=== PATIENT | female | born 1995 | race American Indian/Alaskan Native ===

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

== ENCOUNTER 2017-11-01 11:09 | Emergency (ER) | payer SELFPAY ==
[2017-11-01 12:08] VITALS: BP 124/87
[2017-11-01] MEDS ORDERED: DECADRON IV ONE (16:08)
[2017-11-01] MEDS ORDERED: NACL 0.9% 1000 ML 1,000 ML IV ONE (16:08)
[2017-11-01] MEDS ORDERED: CLEOCIN 600 MG/50 mL 600 MG/50 ML BAG IV ONE (16:10)
--- NOTE | 2017-11-01 16:14 | Emergency Department Report ---
Blank Doc - Documentation Documentation: Patient complains of swelling underneath her chin for the last 3 days. Patient states that the swelling has become increasingly worse and is also painful as well. Patient denies any issues with swallowing or having fever at home. On exam the patient has submental lymphadenopathy intraoral exam shows some intraoral cellulitis there is not any tenderness to the floor the mouth also the floor of mouth is not raised. IV antibiotics and IV fluids were ordered as well as CT of the neck. Care will be handed over to the mid-level Provider with consultation available by me
[2017-11-01 16:33] LABS: Basophils % (Auto) 0.3 % (0.0-1.8); Eosinophils % (Auto) 0.4 % (0.0-4.3); Hematocrit 42.3 % (30.3-42.9); Hemoglobin 14.2 gm/dl (10.1-14.3); Lymphocytes % (Auto) 12.6 % (13.4-35.0); Mean Corpuscular HGB Conc 34 % (30-34); Mean Corpuscular Hemoglobin 29 pg (28-32); Mean Corpuscular Volume 86 fl (79-97); Monocytes # (Auto) 0.7 K/mm3 (0.0-0.8); Platelet Count 214 K/mm3 (140-440); Red Blood Count 4.92 M/mm3 (3.65-5.03); Red Cell Distribution Width 13.5 % (13.2-15.2)
[2017-11-01 16:49] LABS: Alanine Aminotransferase 7 units/L (7-56); Albumin 4.8 g/dL (3.9-5); BUN/Creatinine Ratio 16; Blood Urea Nitrogen 8 mg/dL (7-17); Calcium 9.7 mg/dL (8.4-10.2); Hemolysis Index 6
--- NOTE | 2017-11-01 18:23 | Emergency Department Report ---
Abscess Boil HPI - HPI Chief Complaint: Skin/Abscess/Foreign Body Stated Complaint: SWOLLEN FACE/PAIN Time Seen by Provider: 11/01/17 15:42 Duration: 3 Days Location: Other (left chin area) Severity: Moderate History: Yes Pain, No Fever, No Purulent Drainage, No Numbness, No Foreign Body , No Previous History, No Insect Bite HPI: This is a 21-year-old female nontoxic, well nourished in appearance, no acute signs of distress presents to the ED with c/o of left chin swelling x3 days. Patient denies any pus, drainage, fever, chills, headache, nausea, vomiting, chest pain, shortness of breath, dental pain, stiff neck, abdominal pain. Patient states allergies to penicillin. Patient denies significant past medical history. Home Medications: Previous Rx's Medication Instructions Recorded Last Taken Type Azithromycin [Zithromax Z-JESSICA] 250 mg PO QDAY #6 tablet 10/28/16 Unknown Rx Carbamide Peroxide 6.5% [Ear Wax 5 - 10 drops OT BID #1 bottle 10/28/16 Unknown Rx Drops] Ibuprofen [Motrin] 400 mg PO Q8H PRN #25 tablet 10/28/16 Unknown Rx Acetaminophen/Codeine [Tylenol 1 tab PO Q6H PRN #12 tab 11/01/17 Unknown Rx /Codeine # 3 tab] Clindamycin [Clindamycin CAP] 300 mg PO Q8H #21 cap 11/01/17 Unknown Rx Ibuprofen [Motrin] 600 mg PO Q8H PRN #30 tablet 11/01/17 Unknown Rx Allergies/Adverse Reactions: Allergies Allergy/AdvReac Type Severity Reaction Status Date / Time Penicillins Allergy Angioedema Verified 10/28/16 17:41 ED Review of Systems ROS: Stated complaint: SWOLLEN FACE/PAIN Other details as noted in HPI Constitutional: denies: chills, fever Eyes: denies: eye pain, eye discharge, vision change ENT: denies: ear pain, throat pain Respiratory: denies: cough, shortness of breath, wheezing Cardiovascular: denies: chest pain, palpitations Endocrine: no symptoms reported Gastrointestinal: denies: abdominal pain, nausea, diarrhea Genitourinary: denies: urgency, dysuria, discharge Musculoskeletal: denies: back pain, joint swelling, arthralgia Skin: denies: rash, lesions Neurological: denies: headache, weakness, paresthesias Psychiatric: denies: anxiety, depression Hematological/Lymphatic: denies: easy bleeding, easy bruising ED Past Medical Hx - Past Medical History Previous Medical History?: Yes Hx Psychiatric Treatment: Yes ('mood disorder', ADHD) - Surgical History Past Surgical History?: Yes Additional Surgical History: hernia repair - Social History Smoking Status: Current Every Day Smoker Substance Use Type: Alcohol - Medications Home Medications: Home Medications Medication Instructions Recorded Confirmed Last Taken Type Azithromycin [Zithromax Z-JESSICA] 250 mg PO QDAY #6 tablet 10/28/16 Unknown Rx Carbamide Peroxide 6.5% [Ear Wax 5 - 10 drops OT BID #1 bottle 10/28/16 Unknown Rx Drops] Ibuprofen [Motrin] 400 mg PO Q8H PRN #25 tablet 10/28/16 Unknown Rx Acetaminophen/Codeine [Tylenol 1 tab PO Q6H PRN #12 tab 11/01/17 Unknown Rx /Codeine # 3 tab] Clindamycin [Clindamycin CAP] 300 mg PO Q8H #21 cap 11/01/17 Unknown Rx Ibuprofen [Motrin] 600 mg PO Q8H PRN #30 tablet 11/01/17 Unknown Rx ED Abscess Boil Physical Exam - Exam General: Vital signs noted. No distress. Alert and acting appropriately. GENERAL: The patient is a well-developed, well-nourished in no apparent distress. Patient is alert and acting appropriately for age. Alert and oriented 3, no apparent distress, normal gait, atraumatic. HEENT: Head is normocephalic and atraumatic. PERRL, Extraocular muscles are intact. Pupils are equal, round, and reactive to light and accommodation. Nares appeared normal. Mouth is well hydrated and without lesions. Mucous membranes are moist. Posterior pharynx clear of any exudate or lesions. Mouth is well hydrated and without lesions. Tonsils not erythematous or swollen. Uvula midline. Tongue elevated. Mucous members are moist. Posterior pharynx clear, no exudate or lesions. Patent airways. NECK: Supple. No carotid bruits. No lymphadenopathy or thyromegaly.nontender. No meningitic signs are noted. LUNGS: Clear to auscultation. Non labor breathing. No intercostal retractions. Symmetrical with respiration, no wheezing, no rales, or crackles. HEART: Regular rate and rhythm without murmur, rubs or gallops. No reproducible. S1, S2 present, regular rate and rhythm without murmur, no rubs, no gallops. ABDOMEN: Soft, nontender, and nondistended. Positive bowel sounds. No hepatosplenomegaly was noted. No guarding or rebound tenderness, negative epigastric bruit. Negative psoas sign, negative eubanks sign, negative McBurneys sign EXTREMITIES: Without any cyanosis, clubbing, rash, lesions or edema. Peripheral pulses intact. Capillary refill less than 2 seconds. Full range of motion bilaterally. NEUROLOGIC: Cranial nerves II through XII are grossly intact. Alert and oriented x 3. Normal gait. Symmetrical strength and sensation. Reflexes 2+ throughout. Cerebellar testing normal. GCS score of 15. PSYCHIATRIC: Normal affect with no suicidal or homicidal ideations. Front/Back of Body, Lg (Color): 1 - abscess here Size: 3 cm Exam: Yes Tenderness, Yes Fluctuance, Yes Normal Neurologic Exam, Yes Normal Circulation, No Surrounding Cellulites/Erythema, No Lymphangitis, No Crepitation , No Heart Murmur I & D Note - I & D Note I & D Note: Under sterile field, I used Betadine to cleanse the area. I then used 1% Lidocaine plain with 25-gauge 5/8 needle to inject area for anesthetic purposes. Total volume injected 3 mL. I then used an 11 blade to make a 1 cm incision. About 3 mL's of purulent drainage has been noted. I then used a hemostat to break the abscess formation. I then used sterile 0.9% normal saline flush to flush the wound with total volume of 40 mL used. I then put a 1 /4 iodoform packing to the incision. A sterile 4 x 4 with tape has been applied as dressing. Bleeding is under control. Patient tolerated the procedure well with no signs of distress noted. ED Course Vital Signs 11/01/17 12:04 Temperature 98.4 F Pulse Rate 87 Respiratory 16 Rate Blood Pressure 124/87 O2 Sat by Pulse 96 Oximetry - Reevaluation(s) Reevaluation #1: 11/01/17 18:24 Patient is speaking in full sentences with no signs of distress noted. Critical care attestation.: If time is entered above; I have spent that time in minutes in the direct care of this critically ill patient, excluding procedure time. ED Medical Decision Making - Lab Data Result diagrams: 11/01/17 16:11 11/01/17 16:11 - Medical Decision Making This is a 21-year-old female that presents with left chin abscess. Patient is stable and was examined by me. The incision and drainage and has been performed and patient tolerated well. A sterile dressing has been applied. Patient was educated on proper wound care. Labs unremarkable. Patient received 600 mg IV clindamycin the ED. Patient also received [place] which stated that she will not be operating any machinery after discharge. Patient is discharged with Clinda and Tylenol with codeine and was instructed not to operate any machinery while taking Tylneol with codine due to drowsiness. Patient was instructed to return in 2 days for packing removal. Patient was instructed to refer to Follow-up with a primary care doctor in 3-5 days or if symptoms worsen and continue return to emergency room as soon as possible. At time of discharge, the patient does not seem toxic or ill in appearance. No acute signs of distress noted. Patient agrees to discharge treatment plan of care. No further questions noted by the patient. ED Disposition Clinical Impression: Abscess, Encounter for incision and drainage procedure Disposition: DC-01 TO HOME OR SELFCARE Is pt being admited?: No Does the pt Need Aspirin: No Condition: Stable Instructions: Abscess Incision and Drainage (ED), Abscess (ED), Acetaminophen/ Codeine (By mouth) Additional Instructions: Follow-up with a primary care doctor in 3-5 days or if symptoms worsen and continue return to emergency room as soon as possible. Return in 2 days for packing removal Do not operate any machinery while taking Tylenol with codeine as this may cause drowsiness. Prescriptions: Acetaminophen/Codeine [Tylenol /Codeine # 3 tab] 1 tab PO Q6H PRN #12 tab PRN Reason: Pain , Severe (7-10) Clindamycin [Clindamycin CAP] 300 mg PO Q8H #21 cap Ibuprofen [Motrin] 600 mg PO Q8H PRN #30 tablet PRN Reason: Pain Referrals: PRIMARY CARE, [Primary Care Provider] - 3-5 Days GOODJOIN,FELIX B, MD [Staff Physician] - 3-5 Days [facility] [Outside] - 3-5 Days [facility] [Outside] - 3-5 Days Forms: Work/School Release Form(ED)
--- NOTE | 2017-11-01 19:55 | Cat Scan Report ---
FINAL REPORT EXAM: CT NECK W CON HISTORY: submental swelling TECHNIQUE: Spiral CT scanning of the neck after the uneventful administration of IV contrast. PRIORS: None. FINDINGS: Ovoid, ring-enhancing low-density focus or collection noted subjacent to left mandibular body measuring up to 1.5 cm. Diffuse surrounding soft tissue edema. Prominent lymph nodes in the adjacent submental region may be reactive. No other discrete soft tissue mass. Adjacent mandible grossly intact. The parapharyngeal, international marketing coordinator, parotid, carotid, retropharyngeal and prevertebral spaces are without significant abnormality. The right submandibular and sublingual spaces are grossly unremarkable. Larynx, trachea, thyroid gland and thoracic inlet within normal limits. IMPRESSION: 1. Findings compatible with nonspecific postinflammatory change, including cellulitis or sialoadenitis subjacent to left mandibular body, including probable small inflammatory collection or abscess formation, as reported. Clinical correlation and followup suggested.
[2017-11-01] MEDS ORDERED: NORCO 10/325 PO ONE (20:26)
== END 2017-11-01 21:16 | disposition home or self-care (01) ==
LOC: ED 11:09
DX: L02.01 Cutaneous abscess of face (principal); F17.200 Nicotine dependence, unspecified, uncomplicated; Z88.0 Allergy status to penicillin
CPT/HCPCS: 10060; 36415; 70491; 80053; 84702; 85025; 96374; 96375; 99284; J1100; J7030; Q9967

== ENCOUNTER 2017-11-03 08:07 | Emergency (ER) | payer SELFPAY ==
[2017-11-03 08:26] VITALS: BP 107/65
--- NOTE | 2017-11-03 09:54 | Emergency Department Report ---
ED Recheck HPI - General Chief Complaint: Laceration/Recheck/Suture Stated Complaint: FOLLOW UP, PACKING REMOVING Time Seen by Provider: 11/03/17 09:17 Source: patient Mode of arrival: Ambulatory Limitations: No Limitations - History of Present Illness Initial Comments: This 21-year-old female presents for packing removal. Patient states she had I&D 2 days ago with an abscess to the left side of jaw. She is also requesting a new prescription for antibiotics. Patient state she cannot afford to feel clindamycin as prescribed. She is changing or is daily with small amount of drainage from wound site. Patient denies numbness or tingling, tenderness, swelling, erythema or bruising. MD Complaint: wound re-check Onset/Timin -: days(s) Initial Visit For: abscess Returns Today for: wound recheck Symptoms Since Prior Visit: no new symptoms Context: planned re-check Associated Symptoms: none Treatments Prior to Arrival: dressings, Given Antibiotics on - Related Data Previous Rx's Medication Instructions Recorded Last Taken Type Azithromycin [Zithromax Z-JESSICA] 250 mg PO QDAY #6 tablet 10/28/16 Unknown Rx Carbamide Peroxide 6.5% [Ear Wax 5 - 10 drops OT BID #1 bottle 10/28/16 Unknown Rx Drops] Ibuprofen [Motrin] 400 mg PO Q8H PRN #25 tablet 10/28/16 Unknown Rx Acetaminophen/Codeine [Tylenol 1 tab PO Q6H PRN #12 tab 11/01/17 Unknown Rx /Codeine # 3 tab] Clindamycin [Clindamycin CAP] 300 mg PO Q8H #21 cap 11/01/17 Unknown Rx Ibuprofen [Motrin] 600 mg PO Q8H PRN #30 tablet 11/01/17 Unknown Rx Sulfamethoxazole/Trimethoprim 1 each PO BID #20 tablet 11/03/17 Unknown Rx [Bactrim DS TAB] Allergies Allergy/AdvReac Type Severity Reaction Status Date / Time Penicillins Allergy Angioedema Verified 10/28/16 17:41 ED Review of Systems ROS: Stated complaint: FOLLOW UP, PACKING REMOVING Other details as noted in HPI Constitutional: denies: chills, fever Respiratory: denies: cough, shortness of breath, wheezing Cardiovascular: denies: chest pain, palpitations Gastrointestinal: denies: abdominal pain, nausea, vomiting, diarrhea Skin: lesions (wound to left side of chin). denies: rash Neurological: denies: headache, weakness, numbness, paresthesias Psychiatric: denies: anxiety, depression ED Past Medical Hx - Past Medical History Previous Medical History?: Yes Hx Psychiatric Treatment: Yes ('mood disorder', ADHD) - Surgical History Past Surgical History?: Yes Additional Surgical History: hernia repair - Social History Smoking Status: Never Smoker Substance Use Type: None - Medications Home Medications: Home Medications Medication Instructions Recorded Confirmed Last Taken Type Azithromycin [Zithromax Z-JESSICA] 250 mg PO QDAY #6 tablet 10/28/16 Unknown Rx Carbamide Peroxide 6.5% [Ear Wax 5 - 10 drops OT BID #1 bottle 10/28/16 Unknown Rx Drops] Ibuprofen [Motrin] 400 mg PO Q8H PRN #25 tablet 10/28/16 Unknown Rx Acetaminophen/Codeine [Tylenol 1 tab PO Q6H PRN #12 tab 11/01/17 Unknown Rx /Codeine # 3 tab] Clindamycin [Clindamycin CAP] 300 mg PO Q8H #21 cap 11/01/17 Unknown Rx Ibuprofen [Motrin] 600 mg PO Q8H PRN #30 tablet 11/01/17 Unknown Rx Sulfamethoxazole/Trimethoprim 1 each PO BID #20 tablet 11/03/17 Unknown Rx [Bactrim DS TAB] ED Physical Exam - General Limitations: No Limitations General appearance: alert, in no apparent distress - Respiratory Respiratory exam: Present: normal lung sounds bilaterally. Absent: respiratory distress - Cardiovascular Cardiovascular Exam: Present: regular rate, normal rhythm. Absent: systolic murmur, diastolic murmur, rubs, gallop - GI/Abdominal GI/Abdominal exam: Present: soft, normal bowel sounds. Absent: organomegaly, mass - Neurological Exam Neurological exam: Present: alert, oriented X3 - Psychiatric Psychiatric exam: Present: normal affect, normal mood - Skin Skin exam: Present: warm, dry, normal color, other (half a centimeter wound to left side of mandible with packing, no surrounding cellulitis or active drainage , non-tender ). Absent: intact, rash ED Course Vital Signs 11/03/17 08:24 Temperature 98.2 F Pulse Rate 67 Respiratory 18 Rate Blood Pressure 107/65 O2 Sat by Pulse 98 Oximetry ED Recheck MDM - Differential Diagnosis Wound Recheck - Medical Decision Making This is a 21 y.o. female that presents for packing removal from I&D x2 days ago. Patient is stable and examined by me. No acute signs of distress noted. Packing removed with forceps, cleaned wound with normal saline, applied 4x4 gauze with tape. Discussed plan to switch clindamycin to bactrim DS with patient. Patient agrees to ED plan of care. Discharged home and follow up with PCP in 2-3 days. Critical care attestation.: If time is entered above; I have spent that time in minutes in the direct care of this critically ill patient, excluding procedure time. ED Disposition Clinical Impression: Abscess packing removal Disposition: TO HOME OR SELFCARE Is pt being admited?: No Does the pt Need Aspirin: No Condition: Stable Instructions: Acute Wound Care (ED) Additional Instructions: Keep wound clean with soap and water. Apply triple antibiotic ointment to wound twice a day. Keep a clean dressing to area until completely closed. Complete full course of antibiotics as prescribed to prevent infection. Follow up with primary care provider in 2-3 days. Prescriptions: Sulfamethoxazole/Trimethoprim [Bactrim DS TAB] 1 each PO BID #20 tablet Referrals: [facility] [Outside] - 3-5 Days [facility] [Outside] - 3-5 Days [facility] [Outside] - 3-5 Days Time of Disposition: 10:00 Print Language: [place]
== END 2017-11-03 10:05 | disposition home or self-care (01) ==
LOC: ED 08:07
DX: Z48.01 Encounter for change or removal of surgical wound dressing (principal); F90.9 Attention-deficit hyperactivity disorder, unspecified type; Z88.0 Allergy status to penicillin

== ENCOUNTER 2018-06-20 16:45 | Emergency (ER) | payer OTHER ==
--- NOTE | 2018-06-20 16:59 | Emergency Department Report ---
Blank Doc - Documentation Documentation: This is a 22-year-old female that presents with right facial swelling and redn ess. Has history of abscess in that area. This initial assessment/diagnostic orders/clinical plan/treatment(s) is/are subject to change based on patient's health status, clinical progression and re- assessment by fellow clinical providers in the ED. Further treatment and workup at subsequent clinical providers discretion. Patient/guardians urged not to elope from the ED as their condition may be serious if not clinically assessed and managed. Initial orders include: 1- Patient sent to [facility] for further evaluation and treatment 2- labs
[2018-06-20 17:44] LABS: Basophils % (Auto) 0.3 % (0.0-1.8); Eosinophils # (Auto) 0.3 K/mm3 (0.0-0.4); Eosinophils % (Auto) 4.6 % (0.0-4.3); Hematocrit 38.7 % (30.3-42.9); Lymphocytes # (Auto) 1.2 K/mm3 (1.2-5.4); Mean Corpuscular HGB Conc 34 % (30-34); Mean Corpuscular Volume 85 fl (79-97); Monocytes # (Auto) 0.5 K/mm3 (0.0-0.8); Monocytes % (Auto) 9.2 % (0.0-7.3); Platelet Count 209 K/mm3 (140-440); Red Blood Count 4.55 M/mm3 (3.65-5.03); Red Cell Distribution Width 13.4 % (13.2-15.2)
[2018-06-20 17:58] LABS: BUN/Creatinine Ratio 15; Blood Urea Nitrogen 9 mg/dL (7-17); Calcium 9.3 mg/dL (8.4-10.2); Hemolysis Index 5
[2018-06-20 20:57] VITALS: BP 101/66
--- NOTE | 2018-06-20 21:32 | Emergency Department Report ---
- General Chief complaint: Skin/Abscess/Foreign Body Stated complaint: CYST RT CHEEK Time Seen by Provider: 06/20/18 16:58 Source: patient, family Mode of arrival: Ambulatory Limitations: No Limitations - History of Present Illness Initial comments: Pt is a 22 yo female who presents to the ED with c/o a bump to the right cheek and the left anabaptism that began 2-3 days ago. The patient has a hx of cystic acne but has never taken anything for it and has not seen dermatology. The patient states previously she had an abscess on the face that had to be drained by general surgery and she was given oral abx. She denies any fever or drainage. She denies any other PMHx. - Related Data Previous Rx's Medication Instructions Recorded Last Taken Type Carbamide Peroxide 6.5% [Ear Wax 5 - 10 drops OT BID #1 bottle 10/28/16 Unknown Rx Drops] Ibuprofen [Motrin 400 MG tab] 400 mg PO Q8H PRN #25 tablet 10/28/16 Unknown Rx Ibuprofen [Motrin 600 MG tab] 600 mg PO Q8H PRN #30 tablet 11/01/17 Unknown Rx Loratadine [Claritin] 10 mg PO DAILY #14 tablet 03/04/18 Unknown Rx Benzoyl Peroxide [Acne Treatment] 2 gm TP BID #28 gel..gram. 06/20/18 Unknown Rx Doxycycline [Vibramycin CAP] 100 mg PO BID 10 Days #20 capsule 06/20/18 Unknown Rx Allergies Allergy/AdvReac Type Severity Reaction Status Date / Time Penicillins Allergy Angioedema Verified 10/28/16 17:41 Abscess Boil HPI - HPI Chief Complaint: Skin/Abscess/Foreign Body Stated Complaint: CYST RT CHEEK Time Seen by Provider: 06/20/18 16:58 Home Medications: Previous Rx's Medication Instructions Recorded Last Taken Type Carbamide Peroxide 6.5% [Ear Wax 5 - 10 drops OT BID #1 bottle 10/28/16 Unknown Rx Drops] Ibuprofen [Motrin 400 MG tab] 400 mg PO Q8H PRN #25 tablet 10/28/16 Unknown Rx Ibuprofen [Motrin 600 MG tab] 600 mg PO Q8H PRN #30 tablet 11/01/17 Unknown Rx Loratadine [Claritin] 10 mg PO DAILY #14 tablet 03/04/18 Unknown Rx Benzoyl Peroxide [Acne Treatment] 2 gm TP BID #28 gel..gram. 06/20/18 Unknown Rx Doxycycline [Vibramycin CAP] 100 mg PO BID 10 Days #20 capsule 06/20/18 Unknown Rx Allergies/Adverse Reactions: Allergies Allergy/AdvReac Type Severity Reaction Status Date / Time Penicillins Allergy Angioedema Verified 10/28/16 17:41 ED Review of Systems ROS: Stated complaint: CYST RT CHEEK Other details as noted in HPI Comment: All other systems reviewed and negative ED Past Medical Hx - Past Medical History Hx Congestive Heart Failure: No Hx Diabetes: No Hx Psychiatric Treatment: Yes ('mood disorder', ADHD) Hx Asthma: No Hx COPD: No - Surgical History Additional Surgical History: hernia repair - Social History Smoking Status: Never Smoker Substance Use Type: None - Medications Home Medications: Home Medications Medication Instructions Recorded Confirmed Last Taken Type Carbamide Peroxide 6.5% [Ear Wax 5 - 10 drops OT BID #1 bottle 10/28/16 Unknown Rx Drops] Ibuprofen [Motrin 400 MG tab] 400 mg PO Q8H PRN #25 tablet 10/28/16 Unknown Rx Ibuprofen [Motrin 600 MG tab] 600 mg PO Q8H PRN #30 tablet 11/01/17 Unknown Rx Loratadine [Claritin] 10 mg PO DAILY #14 tablet 03/04/18 Unknown Rx Benzoyl Peroxide [Acne Treatment] 2 gm TP BID #28 gel..gram. 06/20/18 Unknown Rx Doxycycline [Vibramycin CAP] 100 mg PO BID 10 Days #20 capsule 06/20/18 Unknown Rx ED Physical Exam - General Limitations: No Limitations General appearance: alert, in no apparent distress - Head Head exam: Present: atraumatic, normocephalic - Eye Eye exam: Present: normal appearance - ENT ENT exam: Present: mucous membranes moist - Neurological Exam Neurological exam: Present: alert, oriented X3 - Psychiatric Psychiatric exam: Present: normal affect, normal mood - Skin Skin exam: Present: warm, dry, other (two small areas of induration one on the right cheek and one on the left anabaptism, with an open comodome present, no fluctuance, no drainage, no erythema surrounding the induration, no increased warmth) ED Course Vital Signs 06/20/18 06/20/18 16:57 20:56 Temperature 98.5 F 98.1 F Pulse Rate 103 H 87 Respiratory 16 20 Rate Blood Pressure 123/69 Blood Pressure 101/66 [Left] O2 Sat by Pulse 94 85 Oximetry ED Medical Decision Making - Lab Data Result diagrams: 06/20/18 17:20 06/20/18 17:20 - Medical Decision Making Pt is a 22 yo female who presents to the ED with c/o a bump to the right cheek and the left anabaptism that began 2-3 days ago. The patient has a hx of cystic acne but has never taken anything for it and has not seen dermatology. The patient states previously she had an abscess on the face that had to be drained by general surgery and she was given oral abx. She denies any fever or drainage. She denies any other PMHx. on examination, two open comodones present, no fluctuance, no drainage, no surrounding cellulitis. VSS. Pt examination consistent with cystic acne, no abscess formation currently. Will tx pt with doxycycline and benzyl peroxide gel. Advised to follow up with PCP and dermatology in the next 2-3 days. Discussed in detail with patient to return to the emergency room for any new or worsening symptoms or if symptoms do not resolve. - Differential Diagnosis Abscess, Acne Critical care attestation.: If time is entered above; I have spent that time in minutes in the direct care of this critically ill patient, excluding procedure time. ED Disposition Clinical Impression: Cystic acne Disposition: DC- TO HOME OR SELFCARE Is pt being admited?: No Does the pt Need Aspirin: No Condition: Stable Instructions: Acne (ED) Additional Instructions: Please use medication as prescribed. Follow up with a primary care doctor in 2-3 days. Follow up with dermatology in the next 2-3 days. Return to the emergency room for any new or worsening symptoms. Prescriptions: Benzoyl Peroxide [Acne Treatment] 2 gm TP BID #28 gel..gram. Doxycycline [Vibramycin CAP] 100 mg PO BID 10 Days #20 capsule Referrals: SIRISHA CALLOWAY MD [Primary Care Provider] - 2-3 Days ARJUN NGUYEN MD [Staff Physician] - 2-3 Days Time of Disposition: 21:33 Print Language: URUGUAYAN
== END 2018-06-20 21:40 | disposition home or self-care (01) ==
LOC: ED 16:45
DX: L70.0 Acne vulgaris (principal); Z88.0 Allergy status to penicillin
CPT/HCPCS: 36415; 80048; 85025

== ENCOUNTER 2020-03-02 08:09 | Emergency (ER) | payer SELFPAY ==
[2020-03-02 08:22] VITALS: BP 137/78
--- NOTE | 2020-03-02 11:08 | Emergency Department Report ---
Chief Complaint: Upper Respiratory Infection Stated Complaint: NO TASTE OR SMELL, SOB, CHEST PAIN Time Seen by Provider: 03/02/20 11:03 - HPI History of Present Illness: Patient is a 24-year-old female presents emergency room complaints of a dry cough that began 4 days ago. She has associated loss of sense of smell and taste. She states that she has 2 episodes of diarrhea today. He states that she has chest discomfort and shortness of breath only after frequent coughing. She denies any nausea, vomiting, sore throat, ear pain, christa pain. She is tolerating p.o. intake without difficulty. She denies any sick contacts or recent travel. She denies any past medical history. She has an allergy to penicillin. She states her last menstrual cycle was approximately 3 weeks ago. Vitals are normal On repeat in exam room oxygen saturation is 98% on room air, heart rate is 84 bpm On exam: Non toxic appearing, no acute distress atraumatic, normocephalic normal appearance of the eyes, PERRL, EOMI, no periorbital edema or ecchymosis moist mucus membranes, normal oropharynx, normal TMs and canals bilaterally, no sinus tenderness bilaterally regular heart rate and rhythm, no gallops, no rubs, no murmurs breath sounds are clear bilaterally, no w/r/r, no stridor, no respiratory distress, no accessory muscle use A&O x4, no focal neuro deficit skin is warm, dry, intact Symptoms appear most consistent with viral URI Patient is presenting with the symptoms during COVID-19 pandemic, discussed COVID-19 with patient, discussed strict return cautions, discussed outpatient testing, discussed self quarantine Discussed supportive care and symptomatic treatment with patient Patient has no clinical signs of bacterial pneumonia or bacterial bronchitis She has no clinical signs of dehydration and is tolerating p.o. intake She does not meet hospital criteria for admission or for hospital COVID-19 testing Discussed in detail with patient very strict return precautions Medical screening examination performed and there is no threat to life or limb at this time - Exam Vital Signs: Vital Signs 03/02/20 08:19 Temperature 98.3 F Pulse Rate 89 Respiratory 18 Rate Blood Pressure 137/78 [Right] O2 Sat by Pulse 99 Oximetry MSE screening note: Focused history and physical exam performed. Due to findings the following was ordered: ED Disposition for MSE Clinical Impression: Viral URI Disposition: MED SCREENING EXAM-LEFT Is pt being admited?: No Does the pt Need Aspirin: No Condition: Stable Instructions: Viral Respiratory Infection, Prevent the Spread of COVID-19 if You Are Sick - CDC, COVID-19: How to Protect Yourself and Others - [facility] Additional Instructions: Please increase your fluid intake over the next several days. May take Tylenol as needed for fever or body aches. May take [id number] cold symptom relief medication such as Mucinex or TheraFlu. Follow-up with a primary care doctor for reexamination. Return to emergency room immediately for any new or worsening symptoms including but not limited to difficulty breathing, shortness of breath, severe chest pain, unable to tolerate by mouth intake, etc. Please self quarantine for 10 days from the onset of your symptoms. Please do not go out in public. If you are around others at home please wear a mask. If you need to cough or sneeze please do so in a napkin and immediately throw it away and immediately wash your hands. Wash your hands frequently. Wipe everything down. Recommend for you to get COVID-19 testing, may have this done at primary care doctor, health department, [facility] testing center. Referrals: PRIMARY MD CICI [Primary Care Provider] - 2-3 Days SIRISHA CALLOWAY MD [Staff Physician] - 2-3 Days [facility] [Provider Group] - 2-3 Days Forms: Work/School Release Form(ED) Time of Disposition: :07 Print Language: PORTUGUESE
== END 2020-03-02 11:16 | disposition left against medical advice (07) ==
LOC: ED 08:09
DX: R07.9 Chest pain, unspecified (principal); Z53.21 Procedure and treatment not carried out due to patient leaving prior to being seen by health care provider

== ENCOUNTER 2020-08-26 15:37 | Emergency (ER) | payer SELFPAY ==
[2020-08-26 16:08] VITALS: BP 122/72
--- NOTE | 2020-08-26 16:44 | Emergency Department Report ---
- General Chief complaint: Skin/Abscess/Foreign Body Stated complaint: LARGE BUMP ON LT CHEEK Time Seen by Provider: 08/26/20 16:38 Source: patient Mode of arrival: Ambulatory Limitations: No Limitations - History of Present Illness Initial comments: Patient is a 24-year-old female presents emergency room with complaints of a possible abscess to the left side of her face that began 3 days ago. She states that she has a history of cystic acne. She states that she does not use anything for her acne due to sensitive skin. She has not seen a addictions recovery specialist or primary care doctor. She denies any drainage, fever, vomiting, chills. She denies ever having to have I&D in the past. She has an allergy to penicillin. She is unsure of her last menstrual cycle or , she has no abdominal pain or vaginal bleeding. - Related Data Previous Rx's Medication Instructions Recorded Last Taken Type Carbamide Peroxide 6.5% [Ear Wax 5 - 10 drops OT BID #1 bottle 10/28/16 Unknown Rx Drops] Ibuprofen [Motrin 400 MG tab] 400 mg PO Q8H PRN #25 tablet 10/28/16 Unknown Rx Ibuprofen [Motrin 600 MG tab] 600 mg PO Q8H PRN #30 tablet 11/01/17 Unknown Rx Loratadine (Nf) [Claritin (Nf)] 10 mg PO DAILY #14 tablet 03/04/18 Unknown Rx Benzoyl Peroxide [Acne Treatment] 2 gm TP BID #28 gel..gram. 06/20/18 Unknown Rx DOXYCYCLINE Hyclate [Vibramycin 100 mg PO BID 10 Days #20 capsule 06/20/18 Unknown Rx CAP] Clindamycin [Clindamycin CAP] 450 mg PO TID 7 Days #63 capsule 08/26/20 Unknown Rx Allergies Allergy/AdvReac Type Severity Reaction Status Date / Time Penicillins Allergy Angioedema Verified 08/26/20 16:03 Abscess Boil HPI - HPI Chief Complaint: Skin/Abscess/Foreign Body Stated Complaint: LARGE BUMP ON LT CHEEK Time Seen by Provider: 08/26/20 16:38 Home Medications: Previous Rx's Medication Instructions Recorded Last Taken Type Carbamide Peroxide 6.5% [Ear Wax 5 - 10 drops OT BID #1 bottle 10/28/16 Unknown Rx Drops] Ibuprofen [Motrin 400 MG tab] 400 mg PO Q8H PRN #25 tablet 10/28/16 Unknown Rx Ibuprofen [Motrin 600 MG tab] 600 mg PO Q8H PRN #30 tablet 11/01/17 Unknown Rx Loratadine (Nf) [Claritin (Nf)] 10 mg PO DAILY #14 tablet 03/04/18 Unknown Rx Benzoyl Peroxide [Acne Treatment] 2 gm TP BID #28 gel..gram. 06/20/18 Unknown Rx DOXYCYCLINE Hyclate [Vibramycin 100 mg PO BID 10 Days #20 capsule 06/20/18 Unknown Rx CAP] Clindamycin [Clindamycin CAP] 450 mg PO TID 7 Days #63 capsule 08/26/20 Unknown Rx Allergies/Adverse Reactions: Allergies Allergy/AdvReac Type Severity Reaction Status Date / Time Penicillins Allergy Angioedema Verified 08/26/20 16:03 ED Review of Systems ROS: Stated complaint: LARGE BUMP ON LT CHEEK Other details as noted in HPI Comment: All other systems reviewed and negative ED Past Medical Hx - Past Medical History Hx Congestive Heart Failure: No Hx Diabetes: No Hx Psychiatric Treatment: Yes ('mood disorder', ADHD) Hx Asthma: No Hx COPD: No - Surgical History Additional Surgical History: hernia repair - Social History Smoking Status: Never Smoker Substance Use Type: None - Medications Home Medications: Home Medications Medication Instructions Recorded Confirmed Last Taken Type Carbamide Peroxide 6.5% [Ear Wax 5 - 10 drops OT BID #1 bottle 10/28/16 Unknown Rx Drops] Ibuprofen [Motrin 400 MG tab] 400 mg PO Q8H PRN #25 tablet 10/28/16 Unknown Rx Ibuprofen [Motrin 600 MG tab] 600 mg PO Q8H PRN #30 tablet 11/01/17 Unknown Rx Loratadine (Nf) [Claritin (Nf)] 10 mg PO DAILY #14 tablet 03/04/18 Unknown Rx Benzoyl Peroxide [Acne Treatment] 2 gm TP BID #28 gel..gram. 06/20/18 Unknown Rx DOXYCYCLINE Hyclate [Vibramycin 100 mg PO BID 10 Days #20 capsule 06/20/18 Unknown Rx CAP] Clindamycin [Clindamycin CAP] 450 mg PO TID 7 Days #63 capsule 08/26/20 Unknown Rx ED Physical Exam - General Limitations: No Limitations General appearance: alert, in no apparent distress - Head Head exam: Present: other (2 cm area of induration and mild fluctuance to the left lower face, no significant surrounding erythema, no necrosis, no blistering, no skin denuding) - Eye Eye exam: Present: normal appearance - ENT ENT exam: Present: mucous membranes moist - Neurological Exam Neurological exam: Present: alert, oriented X3 - Psychiatric Psychiatric exam: Present: normal affect, normal mood - Skin Skin exam: Present: warm, dry ED Course Vital Signs 08/26/20 08/26/20 16:06 17:03 Temperature 98.9 F Pulse Rate 112 H 100 H Respiratory 20 Rate Blood Pressure 122/72 O2 Sat by Pulse 99 Oximetry ED Medical Decision Making - Lab Data Vital Signs 08/26/20 08/26/20 16:06 17:03 Temperature 98.9 F Pulse Rate 112 H 100 H Respiratory 20 Rate Blood Pressure 122/72 O2 Sat by Pulse 99 Oximetry - Medical Decision Making Patient is a 24-year-old female presents emergency room with complaints of a possible abscess to the left side of her face that began 3 days ago. She states that she has a history of cystic acne. She states that she does not use anything for her acne due to sensitive skin. She has not seen a addictions recovery specialist or primary care doctor. She denies any drainage, fever, vomiting, chills. She denies ever having to have I&D in the past. She has an allergy to penicillin. She is unsure of her last menstrual cycle or , she has no abdominal pain or vaginal bleeding. Additional vitals with mild tachycardia which improved upon repeat without intervention. On exam:2 cm area of induration and mild fluctuance to the left lower face, no significant surrounding erythema, no necrosis, no blistering, no skin denuding. Examination consistent with cellulitis, there is possible very early abscess formation, there is no drainable abscess at this time, would not perform I&D at this time. Patient will be placed on a trial of outpatient antibiotics and given primary care and dermatology follow-up which she needs to see within the next 3 days, discuss strict return precautions with patient and that if symptoms are worsening she needs to return. Given prescription for clindamycin. Advised patient Please take medication as prescribed. Please use a product with the benzyl peroxide or salicylic acid on your face. May use warm compresses. Follow-up with your primary care doctor. Follow-up with a addictions recovery specialist. Return to emergency room for any new or worsening symptoms. Critical care attestation.: If time is entered above; I have spent that time in minutes in the direct care of this critically ill patient, excluding procedure time. ED Disposition Clinical Impression: Facial cellulitis Acne Qualifiers: Acne type: unspecified acne Qualified Code(s): L70.9 - Acne, unspecified Disposition: DC-01 TO HOME OR SELFCARE Is pt being admited?: No Does the pt Need Aspirin: No Condition: Stable Instructions: Skin Abscess, Acne, [id number] Additional Instructions: Please take medication as prescribed. Please use a product with the benzyl peroxide or salicylic acid on your face. May use warm compresses. Follow-up with your primary care doctor. Follow-up with a addictions recovery specialist. Return to emergency room for any new or worsening symptoms. dermatology: Annabelle Bourne MD [facility] in [place], [place] Address: [address] [place] [address] [facility] Address: [address] [place] [address] Prescriptions: Clindamycin [Clindamycin CAP] 450 mg PO TID 7 Days #63 capsule Referrals: SIRISHA CALLOWAY MD [Staff Physician] - 2-3 Days [facility] [Provider Group] - 2-3 Days Time of Disposition: 16:45 Print Language: PASHTO
== END 2020-08-26 17:00 | disposition home or self-care (01) ==
LOC: ED 15:37
DX: L03.211 Cellulitis of face (principal); L70.9 Acne, unspecified; Z98.890 Other specified postprocedural states; Z79.899 Other long term (current) drug therapy
CPT/HCPCS: 99282